=== PATIENT | female | born 1945 | race Caucasian/White ===

== ENCOUNTER 2018-11-08 20:31 | Emergency (ER) | payer MEDICARE ==
[~2018-11-08] VITALS: Ht 165.1 cm; Wt 78.9 kg
[2018-11-08] MEDS ORDERED: Amiodarone HCl200 MG PO (22:08)
[2018-11-08] MEDS ORDERED: POTCHL10ER PO (22:09)
[2018-11-08] MEDS ORDERED: ASPI81CH PO (22:11)
[2018-11-08] MEDS ORDERED: LEVSOD50 PO (22:11)
[2018-11-08] MEDS ORDERED: XARELTO15 MG PO (22:12)
[2018-11-08] MEDS ORDERED: CARV6.25 PO (22:12)
[2018-11-08] MEDS ORDERED: SERT100 PO (22:12)
[2018-11-08] MEDS ORDERED: ATOR40TA PO (22:13)
[2018-11-08] MEDS ORDERED: ZESTRIL40 MG PO (22:13)
[2018-11-08] MEDS ORDERED: METF500 PO (22:13)
[2018-11-08] MEDS ORDERED: NITR.4SL SL (22:14)
[2018-11-08] MEDS ORDERED: AMLO10 PO (22:14)
[2018-11-08] MEDS ORDERED: ALBU90OI INH (22:15)
[2018-11-08] MEDS ORDERED: ALBU2.5V5 INH (22:15)
[2018-11-08] MEDS ORDERED: AZELASTINE137 MCG/0. (22:16)
[2018-11-08] MEDS ORDERED: MONT10T PO (22:17)
[2018-11-08] MEDS ORDERED: Flovent 220 Ora12 GM INH (22:17)
[2018-11-08] MEDS ORDERED: MAGNESIUM250 MG PO (22:20)
[2018-11-08] MEDS ORDERED: OMEGA DHA92 MG PO (22:20)
[2018-11-08] MEDS ORDERED: PROBIOTIC250 MG (22:21)
[2018-11-08] MEDS ORDERED: CO Q-10100 MG PO (22:21)
[2018-11-08] MEDS ORDERED: VITAMIN D31000 UNIT PO (22:22)
[2018-11-08] MEDS ORDERED: CALCIUM CARBON500 M1 (22:22)
[2018-11-08] MEDS ORDERED: POTASSIUM GLUC500 MG (22:23)
[2018-11-08] MEDS ORDERED: Vitamin B Comple1 EA (22:23)
[2018-11-08] MEDS ORDERED: IRON160 M1 (22:24)
== END 2018-11-09 00:44 | disposition home or self-care (01) ==
LOC: ER 20:31
DX: R60.0 Localized edema (principal); I48.91 Unspecified atrial fibrillation; I25.10 Atherosclerotic heart disease of native coronary artery without angina pectoris; I10 Essential (primary) hypertension; D64.9 Anemia, unspecified; M79.89 Other specified soft tissue disorders; Z88.2 Allergy status to sulfonamides; Z79.899 Other long term (current) drug therapy; Z79.82 Long term (current) use of aspirin; Z79.84 Long term (current) use of oral hypoglycemic drugs
CPT/HCPCS: 70450; 72170; 73610; 73630; 99284-25; A9270